=== PATIENT | female | born 1980 | race Caucasian/White ===

== ENCOUNTER 2023-04-27 02:26 | Emergency (ER) | payer BC ==
[~2023-04-27] VITALS: Ht 160 cm; Wt 81.6 kg
[2023-04-27] MEDS ORDERED: PERCOCET 5-3251 EACH PO (05:08)
== END 2023-04-27 05:42 | disposition home or self-care (01) ==
LOC: ED 02:26
DX: S22.31XA Fracture of one rib, right side, initial encounter for closed fracture (principal); V89.2XXA Person injured in unspecified motor-vehicle accident, traffic, initial encounter; Y93.89 Activity, other specified; Y92.410 Unspecified street and highway as the place of occurrence of the external cause; Y99.8 Other external cause status